=== PATIENT | male | born 1965 | race Caucasian/White ===

== ENCOUNTER 2023-05-12 07:20 | Inpatient (IN) ==
[2023-05-08 15:42] LABS: Basophils # (Auto) 0.04 K/mcL (0.00-0.30); Basophils % (Auto) 0.6 % (0.0-2.0); Eosinophils # (Auto) 0.32 K/mcL (0.00-0.70); Eosinophils % (Auto) 4.6 % (0.0-7.0); Hematocrit 41.6 % (40.1-51.0); Lymphocytes # (Auto) 2.09 K/mcL (1.50-4.80); Lymphocytes % (Auto) 30.3 % (15.5-49.0); Mean Cell Volume 90.4 fL (80.0-100.0); Mean Corpuscular HGB Conc 33.7 g/dL (31.0-36.0); Mean Platelet Volume 8.4 fL (8.8-12.5); Monocytes # (Auto) 0.49 K/mcL (0.10-0.90); Monocytes % (Auto) 7.1 % (1.0-12.0); Neutrophils % (Auto) 56.1 % (38.0-78.0); Platelet Count 300 K/mcL (140-440); Red Cell Distribution Width 12.1 % (11.5-14.5); WBC 6.9 K/mcL (4.5-11.0)
[2023-05-08 16:14] LABS: Appearance,Urine CLEAR (Clear); Bilirubin,Urine Negative (Negative); Color,Urine COLORLESS; Culture Indicated,Urine No; Glucose,Urine (UA) Negative (Negative); Ketones,Urine Negative (Negative); Leukocyte Esterase,Urine Negative /uL (Negative); Nitrate,Urine Negative (Negative); Protein,Urine Negative (Negative); Specific Gravity,Urine 1.003 (1.000-1.035); Urine Blood Negative (Negative); Urobilinogen,Urine Negative
[2023-05-08 16:35] LABS: Blood Urea Nitrogen 8 mg/dL (6-20); Calcium 9.6 mg/dL (8.6-10.4); Carbon Dioxide 21 mmol/L (22-30); Chloride 99 mmol/L (96-108); Glomerular Filtration Rate 104; Glucose 122 mg/dL (70-105)
--- NOTE | 2023-05-09 07:06 | EKG ---
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 Measurements Intervals [place] Rate: 102 P: 41 OR: 201 QRS: 3 QRSD: 103 T: 2 QT: 353 QTc: 460 Interpretive Statements Sinus tachycardia FIRST DEGREE AV BLOCK Electronically Signed On 05-09-2023 7:06:14 PDT by Artem Beasley M.D. /[email or web address]/[email or web address]/[id number]
[~2023-05-12 07:20] MED LIST: ACETAMINOPHEN 500 MG TABLET PO SCH; CELECOXIB 200 MG CAPSULE PO SCH; PREGABALIN 75 MG CAPSULE PO SCH; ceFAZolin 2 GM in DEXTROSE 5% IN WATER 50 ML IV SCH; oxyCODONE 10 MG TAB.ER.12H PO SCH
[2023-05-12] MEDS ORDERED: fentaNYL 100 MCG/2 ML VIAL IV ONE (11:25)
[2023-05-12] MEDS ORDERED: BUPIVACAINE W/EPI 0.5% 50 ML VIAL IJ ONE (11:25)
[2023-05-12] MEDS ORDERED: TRANEXAMIC ACID 1,000 MG/10 ML VIAL ONE (11:25)
[2023-05-12] MEDS ORDERED: MIDAZOLAM 2 MG/2 ML VIAL ONE (11:25)
[2023-05-12] MEDS ORDERED: DEXAMETHASONE 10 MG/ML VIAL ONE (11:25)
[2023-05-12] MEDS ORDERED: PROPOFOL 200 MG/20 ML VIAL IV ONE (11:25)
[2023-05-12] MEDS ORDERED: LIDOCAINE HCL/PF 100 MG/5 ML SYRINGE IV ONE (11:25)
[2023-05-12] MEDS ORDERED: IPRATROPIUM/ALBUTEROL 3 ML AMPUL.NEB NEB PRN (11:54)
[2023-05-12] MEDS ORDERED: HYDROmorphone 0.5 MG/0.5 ML SYRINGE IV PRN (11:54)
[2023-05-12] MEDS ORDERED: morphine 2 MG/ML VIAL IV PRN (11:54)
[2023-05-12] MEDS ORDERED: ONDANSETRON 4 MG/2 ML VIAL IV PRN ×2 (11:54→12:58)
[2023-05-12] MEDS ORDERED: MEPERIDINE 25 MG/ML VIAL IV PRN (11:54)
[2023-05-12] MEDS ORDERED: LIDOCAINE W/EPI 1% 20 ML VIAL IJ ONE (12:08)
--- NOTE | 2023-05-12 12:48 | Discharge Plan ---
DC Instructions-General Patient Instructions Additional Dressing Instructions: keep compression dressing intact x 3 weeks. If soiled or wet change. (Jennifer out 3 weeks) Discharge Plan Patient/Caregiver Discharge Instructions Activity: non-weight bearing Diet: Regular Diet Prescriptions: New hydrocodone-acetaminophen 10-325 mg tablet 1 - 2 tab PO Q4H PRN (Reason: pain) Qty: 75 0RF aspirin [Ecotrin Low Strength] 81 mg tablet,delayed release (DR/EC) 81 mg PO BID Qty: 60 0RF docusate sodium 100 mg capsule 100 mg PO BID Qty: 60 0RF No Action multivitamin Tablet 1 tab PO QDAY ascorbic acid (vitamin C) [Vitamin C] 1,000 mg Tablet 1,000 mg PO QDAY linezolid 600 mg Tablet 600 mg PO BID metformin 1,000 mg Tablet 1,000 mg PO BID cephalexin 500 mg Tablet 500 mg PO QID magnesium 250 mg Tablet 500 mg PO QDAY Follow Up Plan Follow up with: Nehemiah Dickson MD [Physician] - 05/29/23 1:10 pm Joseph Linda PAMieshaC [Physician Motion Graphics Designer] - Patient Disposition: Home, Self-Care Prognosis: Good Rehab Potential: Good I certify that the patient requires SNF services: No Overall status at discharge: patient is progressing back to baseline Discharge Orders: Discharge Order (Routine); Ordered 05/13/23 Ordered By: Joseph Linda Discharge Comment: No Ortho F/u until 3 weeks for staple removal
--- NOTE | 2023-05-12 12:57 | Brief Operative Note ---
Brief Operative Note Date of procedure: 05/12/23 Pre-op diagnosis: Left foot gangrene Post-op diagnosis: same Procedure: Left below knee amputation Grafts/Implants: Yes Anesthesia: GETA Findings: left foot gangrene and failure of wound care Complications: none Surgeon: Nehemiah Dickson [employer] Professor: Joseph Linda Estimated blood loss (cc): 156 Tourniquet Time (Minutes): 20 Specimens Removed/Pathology: none sent Condition: stable Disposition: PACU
[2023-05-12] MEDS ORDERED: ACETAMINOPHEN 325 MG TABLET PO PRN (12:58)
[2023-05-12] MEDS ORDERED: TEMAZEPAM 15 MG CAPSULE PO PRN (12:58)
[2023-05-12] MEDS ORDERED: POLYETHYLENE GLYCOL 3350 17 GM PACKET PO PRN (12:58)
[2023-05-12] MEDS ORDERED: MAGNESIUM HYDROXIDE 30 ML ORAL.SUSP PO PRN (12:58)
[2023-05-12] MEDS ORDERED: FLEETS ADULT ENEMA PR PRN (12:58)
[2023-05-12] MEDS ORDERED: BISACODYL 10 MG SUPP.RECT PR PRN (12:58)
[2023-05-12] MEDS ORDERED: TRANEXAMIC ACID 1,000 MG/10 ML VIAL IV ONE (12:58)
[2023-05-12] MEDS ORDERED: BENZOCAINE/MENTHOL 1 LOZENGE PO PRN (12:58)
--- NOTE | 2023-05-12 13:22 | Operative Note ---
DATE OF OPERATION: 05/12/2023 DATE OF PROCEDURE: 05/12/2023 PREOPERATIVE DIAGNOSIS: Left foot gangrene. POSTOPERATIVE DIAGNOSES: Left foot gangrene. PROCEDURE: Left below-knee amputation. SURGEON: Nehemiah Dickson M.D. COMPRESSED GASES TESTER: Joseph Linda PA-C. This providers expertise and technical skill were required throughout the case. The PA assisted with preoperative coordination, intraoperative retraction, wound closure, and dressing and splint application, as well as postoperative documentation and care coordination. ANESTHESIA: General LMA anesthesia. ESTIMATED BLOOD LOSS: 156 mL. No blood products given. SPECIMENS SENT: A below-knee amputation foot was sent for pathology. TOURNIQUET TIME: Approximately 20 minutes. DESCRIPTION OF PROCEDURE: The patient was brought to the operating room, put to sleep with general LMA anesthesia. Once asleep, the patient had the left leg sterilely prepped and draped in the usual sterile fashion. Once the timeout had been performed, confirming the operative site, we exsanguinated the leg and inflated the tourniquet to 250 pounds of pressure. We then marked 12 cm below the articular surface, measured the circumference and then one-half of the circumference was our posterior flap as well as a very long anterior flap he had very good vascular flow to the front skin, and he had quite a large calf. With this adequate skin coverage, we incised through skin, identified the tibia, which was cut at 12 cm. The cut was chamfered and the fibula cut 2 cm more proximal than the tibia. Nerves were identified. This included the peroneal nerve as well as posterior tibial nerve and the anterior tibial nerve was also identified, the vessel groups the anterior bundle and the posterior bundle of the tibial arteries and veins Correspondingly, we identified these and with a 2-0 Vicryl we tied these x2. We removed most of the soleus muscle and kept some of the anterior lateral compartment for skin healing reasons and to cover the fibula. Once we deflated the tourniquet, we controlled bleeding with the Bovie and further stitches as required. Once done and we had injected the posterior tibial nerve with lidocaine with epinephrine, we then tied the gastroc muscle tendinous portion of the muscle to the distal portion of the tibia through drill holes. We then used FiberWire to connect the fascial layer as well as Stratafix. With Stratafix, we also made a deeper layer to the skin closure and a subcuticular closure. Once this was well aligned and we had adequate skin we then placed mateo throughout. Any place that was interrupted we used Prolene #1 to close these. We then placed a sterile bandage and compressive bandage was then placed. Blood loss was about 150 mL. COMPLICATIONS: None. DISPOSITION: PACU. RBH:kh Job ID: [id number] Doc ID: [id number] Nehemiah Dickson MD
[2023-05-12] MEDS: fentaNYL 100 MCG/2 ML VIAL IV PRN ×2 (13:44→13:51)
--- NOTE | 2023-05-12 13:46 | XRay Report ---
HISTORY: Postop below-knee left leg amputation FINDINGS: There are normal postoperative changes following amputation of the lower leg. The proximal portions of the tibia and fibula remain intact. There is gas in the soft tissues at the stump and there are overlying surgical mateo. There is severe joint space narrowing in the lateral joint compartment and mild arthritis of the patellofemoral joint. IMPRESSION: Normal postoperative changes following below-knee amputation Interpreted and Authenticated by: Ramsey Besaley 05/12/23
[2023-05-12] MEDS ORDERED: 0.9 % SODIUM CHLORIDE 10 ML SYRINGE IV SCH (14:00)
[2023-05-12] MEDS: 0.45 % SODIUM CHLORIDE 1,000 ML IV SCH ×2 (14:26→23:17)
[2023-05-12] MEDS: 0.9 % SODIUM CHLORIDE 10 ML SYRINGE IV SCH ×2 (16:21→20:31)
[2023-05-12] MEDS: HYDROcodone/APAP 10/325MG TABLET PO PRN ×2 (16:56→21:26)
[2023-05-12] MEDS: ceFAZolin 1 GM VIAL IV SCH (19:39)
[2023-05-12] MEDS: HYDROmorphone 1 MG/ML SYRINGE IV PRN ×2 (19:39→23:40)
[2023-05-12] MEDS: metFORMIN 500 MG TABLET PO SCH (20:30)
[2023-05-12] MEDS: ASPIRIN 81 MG TAB.CHEW PO SCH (20:30)
[2023-05-12] MEDS: SENNOSIDES 1 TABLET PO SCH (20:30)
[2023-05-12] MEDS: DOCUSATE SODIUM 100 MG CAPSULE PO SCH (20:30)
[2023-05-13] MEDS: ceFAZolin 1 GM VIAL IV SCH (03:06)
[2023-05-13] MEDS: 0.9 % SODIUM CHLORIDE 10 ML SYRINGE IV SCH ×3 (04:53→21:15)
[2023-05-13] MEDS: HYDROmorphone 1 MG/ML SYRINGE IV PRN ×5 (04:53→23:44)
--- NOTE | 2023-05-13 06:45 | Orthopedic Progress Note ---
SUBJECTIVE Subjective Patient information: Note initiated : 05/13/23 at 6:44 am Service Date, if different from initiated Date: [] Patient: Shane De La O 57 y/o M admitted on 05/12/23 for Left Amputation Through Tibia & Fibula. Chief Complaint: [Pt is stable this morning on post operative day without any significant concerns or complaints. Patients vital signs have remained stable. Patients dressing is dry and is grossly intact from a neurovascular and motor standpoint. Patients 10 point ROS is otherwise negative. ] Constitutional Vitals: Vital Signs Temp Pulse Resp BP Pulse Ox O2 Del Method O2 Flow Rate 97.9 F 86 16 121/82 95 Room Air 2 05/13/23 03:05 05/13/23 03:05 05/13/23 03:05 05/13/23 03:05 05/13/23 04:59 05/13/23 04:59 05/12/23 14:08 Period Temp Pulse Resp BP Sys/Simpson Pulse Ox O2 Del Method O2 Flow Rate Last 24 Hr 97.0 F-98.6 F 74-110 8-27 85-132/53-84 85-98 Oxymask-Room Air 0-6 Intake and Output 05/12/23 05/13/23 05/13/23 19:59 03:59 11:59 Intake Total 420 1700 Output Total 1900 1200 Balance -1480 500 Weight 242 lb 9.6 oz Intake & Output: Intake & Output 05/12/23 05/13/23 05/13/23 19:59 03:59 11:59 Intake Total 420 1700 Output Total 1900 1200 Balance -1480 500 Weight 242 lb 9.6 oz Intake: IV 1000 Sodium Chloride 0.45% 1,000 ml 1000 @ 100 mls/hr IV .Q10H [facility] Rx#: [id number] Oral 420 700 Output: Void Amount 1900 1200 Other: Urine Appearance Clear Clear Urine Color Yellow Yellow Stool Size Moderate Stool Consistency Soft Formed # Bowel Movements 1 Extremities Exam Extremities exam: Present normal inspection OBJ DATA Labs 05/13/23 05:09 05/08/23 13:40 Labs: Abnormal Lab Results 05/13/23 05:09 Hct 37.1 L Meds: Medications Acetaminophen (Acetaminophen 325 Mg Tablet) 650 mg PO Q6HP PRN; Protocol PRN Reason: Per Pain Protocol/Fever > 101 Hydrocodone Bitart/Acetaminophen (Hydrocodone/Apap 325mg Tablet) 1 - 2 tab PO Q4HP PRN; Protocol PRN Reason: Per Pain Protocol Last Admin: 05/12/23 21:26 Dose: 2 tab Aspirin (Aspirin 81 Mg Tab.Chew) 81 mg PO BID [facility] Last Admin: 05/12/23 20:30 Dose: 81 mg Bisacodyl (Bisacodyl 10 Mg Supp.Rect) 10 mg OK Q2-3DAYS PRN PRN Reason: Constipation Docusate Sodium (Docusate Sodium 100 Mg Capsule) 100 mg PO BID [facility] Last Admin: 05/12/23 20:30 Dose: 100 mg Hydromorphone HCl (Hydromorphone 1 Mg/Ml Syringe) 0.5 - 2 mg IV Q2HP PRN; Protocol PRN Reason: Per Pain Protocol Last Admin: 05/13/23 04:53 Dose: 2 mg Sodium Chloride (Sodium Chloride 0.45%) 1,000 mls @ 100 mls/hr IV .Q10H [facility] Last Admin: 05/12/23 23:17 Dose: Not Given Iron Carb/Multivit/[place]/Folic Acid (Multivit,Ther Iron,Ca,Fa & Min 1 Tablet) 1 tab PO QDAY [facility] Magnesium Hydroxide (Magnesium Hydroxide 30 Ml Oral.Susp) 30 ml PO BIDP PRN PRN Reason: Constipation Metformin HCl (Metformin 500 Mg Tablet) 1,000 mg PO BID [facility] Last Admin: 05/12/23 20:30 Dose: 1,000 mg Ondansetron HCl (Ondansetron 4 Mg/2 Ml Vial) 4 mg IV Q4HP PRN PRN Reason: Nausea And Vomiting Polyethylene Glycol (Polyethylene Glycol 3350 17 Gm Packet) 17 gm PO DAILYP PRN PRN Reason: Constipation Senna (Sennosides 1 Tablet) 2 tab PO HS [facility] Last Admin: 05/12/23 20:30 Dose: 2 tab Sodium Biphosphate/Sodium Phosphate (Fleets Adult Enema) 1 dose OK Q3-4DAYS PRN PRN Reason: Constipation Sodium Chloride (0.9 % Sodium Chloride 10 Ml Syringe) 10 ml IV Q8 [facility] Last Admin: 05/13/23 04:53 Dose: 10 ml Temazepam (Temazepam 15 Mg Capsule) 15 mg PO HSP PRN PRN Reason: Insomnia Throat Lozenges (Benzocaine/Menthol 1 Lozenge) 1 lozenge PO PRN PRN PRN Reason: Sore Throat A/P Narrative A/P Narrative: The patient has been educated regarding dressing care, , restrictions, and follow up appointments. The patient has had all necessary DME prescribed. The patient has remained relatively stable during their hospital course. Time Spent With Patient Time: Total time spent is greater than 50% in coordination of care (as documented) at patient's floor/unit and/or counseling patient: Initial: Total time with patient: Less than 40 minutes Subsequent: Total time with patient: Less than 25 minutes Critical Care Time: No
[2023-05-13] MEDS: metFORMIN 500 MG TABLET PO SCH ×2 (09:04→21:15)
[2023-05-13] MEDS: HYDROcodone/APAP 10/325MG TABLET PO PRN ×2 (09:04→13:41)
[2023-05-13] MEDS: MULTIVIT,THER IRON,CA,FA & MIN 1 TABLET PO SCH (09:06)
[2023-05-13] MEDS: DOCUSATE SODIUM 100 MG CAPSULE PO SCH ×2 (09:06→21:15)
[2023-05-13] MEDS: ASPIRIN 81 MG TAB.CHEW PO SCH ×2 (09:06→21:15)
[2023-05-13] MEDS: 0.45 % SODIUM CHLORIDE 1,000 ML IV SCH (10:43)
[2023-05-13] MEDS: diphenhydrAMINE 25 MG CAPSULE PO PRN ×2 (15:36→21:15)
[2023-05-13] MEDS: oxyCODONE IR 5 MG TABLET PO PRN ×2 (16:50→21:15)
[2023-05-13] MEDS: SENNOSIDES 1 TABLET PO SCH (21:15)
[2023-05-14] MEDS: oxyCODONE IR 5 MG TABLET PO PRN ×2 (03:19→08:23)
[2023-05-14] MEDS: HYDROmorphone 1 MG/ML SYRINGE IV PRN ×2 (05:37→12:03)
[2023-05-14] MEDS: 0.9 % SODIUM CHLORIDE 10 ML SYRINGE IV SCH (05:38)
[2023-05-14] MEDS: diphenhydrAMINE 25 MG CAPSULE PO PRN ×2 (05:38→12:02)
[2023-05-14] MEDS: metFORMIN 500 MG TABLET PO SCH (08:22)
[2023-05-14] MEDS: DOCUSATE SODIUM 100 MG CAPSULE PO SCH (08:22)
[2023-05-14] MEDS: MULTIVIT,THER IRON,CA,FA & MIN 1 TABLET PO SCH (08:23)
[2023-05-14] MEDS: ASPIRIN 81 MG TAB.CHEW PO SCH (08:23)
== END 2023-05-14 12:20 | disposition home or self-care (01) | DRG 240 ==
LOC: MEDSUR 07:20
PROVIDERS: ADMIT Orthopaedic Surgery; ATTEND Orthopaedic Surgery

== ENCOUNTER 2025-09-20 12:21 | Inpatient (IN) ==
[2025-09-20 13:49] LABS: Basophils # (Auto) 0.01 K/mcL (0.00-0.30); Basophils % (Auto) 0.2 % (0.0-2.0); Eosinophils # (Auto) 0.16 K/mcL (0.00-0.70); Eosinophils % (Auto) 2.4 % (0.0-7.0); Hematocrit 43.6 % (40.1-51.0); Hemoglobin 14.6 g/dL (13.7-17.5); Lymphocytes # (Auto) 1.48 K/mcL (1.50-4.80); Lymphocytes % (Auto) 22.3 % (15.5-49.0); Mean Corpuscular HGB Conc 33.5 g/dL (31.0-36.0); Monocytes # (Auto) 0.76 K/mcL (0.10-0.90); Monocytes % (Auto) 11.4 % (1.0-12.0); Neutrophils % (Auto) 63.1 % (38.0-78.0); Platelet Count 278 K/mcL (140-440); RBC 4.68 M/mcL (4.63-6.08); WBC 6.7 K/mcL (4.5-11.0)
[2025-09-20 13:54] LABS: ALT/SGPT 65 U/L (<40); AST/SGOT 58 U/L (<40); Albumin 3.9 gm/dL (3.2-5.2); Albumin/Globulin Ratio 0.9 (1.0-2.3); Alkaline Phosphatase 90 U/L (39-117); Anion Gap 13.0 (8.0-16.0); Bilirubin,Total 0.3 mg/dL (0.1-1.0); Blood Urea Nitrogen 8 mg/dL (6-20); Calcium 9.7 mg/dL (8.6-10.4); Carbon Dioxide 26 mmol/L (22-30); Chloride 98 mmol/L (96-108); Globulin 4.2 gm/dL (2.2-3.7); Glucose 206 mg/dL (70-105); Potassium 4.0 mmol/L (3.3-5.1); Sodium 137 mmol/L (133-145)
[2025-09-20 13:55] LABS: C-Reactive Protein 10.10 mg/dL (0.03-0.80)
[2025-09-20] MEDS: PIPERACILLIN SODIUM/TAZOBACTAM 3.375 GM in DEXTROSE 5% IN WATER 50 ML IV ONE (14:17)
[2025-09-20] MEDS: VANCOMYCIN 2,000 MG in 0.9 % SODIUM CHLORIDE 500 ML IV ONE (14:52)
[2025-09-20 16:28] LABS: Estimated Average Glucose(eAG) 128.0 mg/dL; Hemoglobin A1C 6.1 % Hgb (4.0-6.0)
[2025-09-20] MEDS ORDERED: DEXTROSE 31 GM ORAL.SUSP PO PRN (17:46)
[2025-09-20] MEDS ORDERED: VANCOMYCIN PER PHARMACY IV SCH (17:46)
[2025-09-20] MEDS ORDERED: DEXTROSE 50% 50 ML VIAL IV PRN (17:46)
[2025-09-20] MEDS ORDERED: IBUPROFEN 600 MG TABLET PO PRN (17:46)
[2025-09-20] MEDS ORDERED: ONDANSETRON 4 MG/2 ML VIAL IV PRN (17:46)
[2025-09-20] MEDS ORDERED: ACETAMINOPHEN 325 MG TABLET PO PRN (17:46)
[2025-09-20] MEDS ORDERED: SENNOSIDES 1 TABLET PO PRN (17:46)
[2025-09-20] MEDS ORDERED: MAG HYDROX/AL HYDROX/SIMETH 30 ML ORAL.SUSP PO PRN (17:46)
[2025-09-20] MEDS ORDERED: ACETAMINOPHEN 1,000 MG/100 ML BAG IV PRN (17:46)
[2025-09-20] MEDS: INSULIN LISPRO 1 UNIT/0.01 ML UNIT SQ SCH (18:09)
[2025-09-20] MEDS: CEFEPIME 2 GM VIAL IV SCH (18:15)
[2025-09-20] MEDS: metroNIDAZOLE 500 MG/100 ML BAG IV SCH (18:15)
[2025-09-20] MEDS: HEPARIN 5,000 UNIT/ML VIAL SQ SCH (21:09)
[2025-09-20] MEDS: 0.9 % SODIUM CHLORIDE 10 ML SYRINGE IV SCH (21:09)
[2025-09-21] MEDS: VANCOMYCIN 1,750 MG in 0.9 % SODIUM CHLORIDE 500 ML IV SCH (01:57)
[2025-09-21] MEDS: LACTATED RINGERS 1,000 ML IV SCH (01:57)
[2025-09-21 06:24] LABS: Basophils # (Auto) 0.01 K/mcL (0.00-0.30); Basophils % (Auto) 0.2 % (0.0-2.0); Eosinophils # (Auto) 0.16 K/mcL (0.00-0.70); Eosinophils % (Auto) 3.4 % (0.0-7.0); Hematocrit 41.6 % (40.1-51.0); Hemoglobin 13.9 g/dL (13.7-17.5); Lymphocytes # (Auto) 1.28 K/mcL (1.50-4.80); Lymphocytes % (Auto) 27.1 % (15.5-49.0); Mean Corpuscular HGB Conc 33.4 g/dL (31.0-36.0); Monocytes # (Auto) 0.43 K/mcL (0.10-0.90); Monocytes % (Auto) 9.1 % (1.0-12.0); Neutrophils % (Auto) 59.6 % (38.0-78.0); Platelet Count 256 K/mcL (140-440); RBC 4.44 M/mcL (4.63-6.08); WBC 4.7 K/mcL (4.5-11.0)
[2025-09-21 06:48] LABS: ALT/SGPT 64 U/L (<40); AST/SGOT 60 U/L (<40); Albumin 3.6 gm/dL (3.2-5.2); Albumin/Globulin Ratio 0.9 (1.0-2.3); Alkaline Phosphatase 74 U/L (39-117); Anion Gap 10.0 (8.0-16.0); Bilirubin,Direct < 0.2 mg/dL (0-0.3); Bilirubin,Total 0.3 mg/dL (0.1-1.0); Blood Urea Nitrogen 8 mg/dL (6-20); Calcium 8.9 mg/dL (8.6-10.4); Carbon Dioxide 26 mmol/L (22-30); Chloride 103 mmol/L (96-108); Globulin 3.8 gm/dL (2.2-3.7); Glucose 153 mg/dL (70-105); Phosphorous 3.9 mg/dL (2.5-4.5); Potassium 4.0 mmol/L (3.3-5.1); Sodium 139 mmol/L (133-145); Triglycerides 138 mg/dL (<150); Uric Acid 5.4 mg/dL (2.5-8.0)
[2025-09-21] MEDS: ENOXAPARIN 40 MG/0.4 ML SYRINGE SQ SCH (20:22)
[2025-09-21 21:48] LABS: Bilirubin,Urine NEGATIVE (Negative); Color,Urine LT. YELLOW; Glucose,Urine (UA) NEGATIVE (Negative); Ketones,Urine NEGATIVE (Negative); Leukocyte Esterase,Urine NEGATIVE /uL (Negative); PH,Urine 6.5 (5.0-9.0); Protein,Urine NEGATIVE (Negative); Specific Gravity,Urine 1.010 (1.000-1.035); Urobilinogen,Urine 0.2 mg/dL
[2025-09-22 06:37] LABS: Basophils # (Auto) 0.01 K/mcL (0.00-0.30); Basophils % (Auto) 0.2 % (0.0-2.0); Eosinophils # (Auto) 0.15 K/mcL (0.00-0.70); Eosinophils % (Auto) 3.6 % (0.0-7.0); Hematocrit 38.7 % (40.1-51.0); Hemoglobin 12.8 g/dL (13.7-17.5); Lymphocytes # (Auto) 1.15 K/mcL (1.50-4.80); Lymphocytes % (Auto) 27.4 % (15.5-49.0); Mean Corpuscular HGB Conc 33.1 g/dL (31.0-36.0); Monocytes # (Auto) 0.40 K/mcL (0.10-0.90); Monocytes % (Auto) 9.5 % (1.0-12.0); Neutrophils % (Auto) 58.3 % (38.0-78.0); Platelet Count 242 K/mcL (140-440); RBC 4.09 M/mcL (4.63-6.08); WBC 4.2 K/mcL (4.5-11.0)
[2025-09-22 07:09] LABS: ALT/SGPT 72 U/L (<40); AST/SGOT 69 U/L (<40); Albumin 3.4 gm/dL (3.2-5.2); Albumin/Globulin Ratio 1.0 (1.0-2.3); Alkaline Phosphatase 66 U/L (39-117); Anion Gap 10.0 (8.0-16.0); Bilirubin,Direct < 0.2 mg/dL (0-0.3); Bilirubin,Total 0.3 mg/dL (0.1-1.0); Blood Urea Nitrogen 9 mg/dL (6-20); Calcium 8.8 mg/dL (8.6-10.4); Carbon Dioxide 25 mmol/L (22-30); Chloride 106 mmol/L (96-108); Globulin 3.5 gm/dL (2.2-3.7); Glucose 141 mg/dL (70-105); Phosphorous 3.5 mg/dL (2.5-4.5); Potassium 3.8 mmol/L (3.3-5.1); Sodium 141 mmol/L (133-145); Triglycerides 134 mg/dL (<150); Uric Acid 6.2 mg/dL (2.5-8.0)
[2025-09-22] MEDS ORDERED: ONDANSETRON 4 MG/2 ML VIAL ONE (10:33)
[2025-09-22] MEDS ORDERED: METOCLOPRAMIDE 10 MG/2 ML VIAL ONE (10:33)
[2025-09-22] MEDS ORDERED: PROPOFOL 200 MG/20 ML VIAL IV ONE (10:33)
[2025-09-22] MEDS ORDERED: MIDAZOLAM 2 MG/2 ML VIAL ONE (10:33)
[2025-09-22] MEDS ORDERED: KETOROLAC 30 MG/ML VIAL ONE (10:33)
[2025-09-22] MEDS ORDERED: GLYCOPYRROLATE 0.2 MG/ML VIAL IV ONE (10:33)
[2025-09-22] MEDS ORDERED: LIDOCAINE 2% PF 5 ML VIAL ONE (10:33)
[2025-09-22] MEDS ORDERED: DEXAMETHASONE 10 MG/ML VIAL ONE (10:33)
[2025-09-22] MEDS ORDERED: FAMOTIDINE/PF 20 MG/2 ML VIAL IV ONE (10:33)
[2025-09-22] MEDS: 0.9 % SODIUM CHLORIDE 500 ML IV ONE (12:10)
[2025-09-22] MEDS: BUPIVACAINE 0.5% 50 ML VIAL IJ ONE (12:17)
[2025-09-22] MEDS ORDERED: HYDROmorphone 0.5 MG/0.5 ML SYRINGE ONE (12:41)
[2025-09-22] MEDS ORDERED: ePHEDrine 50 MG/5 ML SYRINGE (ANEST) IV ONE (12:51)
[2025-09-22] MEDS ORDERED: IPRATROPIUM/ALBUTEROL 3 ML AMPUL.NEB NEB PRN (13:17)
[2025-09-22] MEDS ORDERED: HYDROmorphone 0.5 MG/0.5 ML SYRINGE IV PRN (13:17)
[2025-09-22] MEDS ORDERED: fentaNYL 100 MCG/2 ML VIAL IV PRN (13:17)
[2025-09-22] MEDS: ACETAMINOPHEN 1,000 MG/100 ML BAG IV ONE (13:35)
[2025-09-22] MEDS: 0.9 % SODIUM CHLORIDE 10 ML SYRINGE IV SCH (13:55)
[2025-09-22] MEDS: LACTATED RINGERS 1,000 ML IV SCH (14:29)
[2025-09-23 06:21] LABS: Basophils # (Auto) 0 K/mcL (0.00-0.30); Basophils % (Auto) 0 % (0.0-2.0); Eosinophils # (Auto) 0.03 K/mcL (0.00-0.70); Eosinophils % (Auto) 0.4 % (0.0-7.0); Hematocrit 38.2 % (40.1-51.0); Hemoglobin 12.8 g/dL (13.7-17.5); Lymphocytes # (Auto) 1.44 K/mcL (1.50-4.80); Lymphocytes % (Auto) 17.5 % (15.5-49.0); Mean Corpuscular HGB Conc 33.5 g/dL (31.0-36.0); Monocytes # (Auto) 0.56 K/mcL (0.10-0.90); Monocytes % (Auto) 6.8 % (1.0-12.0); Neutrophils % (Auto) 74.6 % (38.0-78.0); Platelet Count 286 K/mcL (140-440); RBC 4.06 M/mcL (4.63-6.08); WBC 8.2 K/mcL (4.5-11.0)
[2025-09-23 06:35] LABS: ALT/SGPT 77 U/L (<40); AST/SGOT 61 U/L (<40); Albumin 3.4 gm/dL (3.2-5.2); Albumin/Globulin Ratio 1.0 (1.0-2.3); Alkaline Phosphatase 64 U/L (39-117); Anion Gap 10.0 (8.0-16.0); Bilirubin,Direct < 0.2 mg/dL (0-0.3); Bilirubin,Total 0.2 mg/dL (0.1-1.0); Blood Urea Nitrogen 10 mg/dL (6-20); Calcium 8.5 mg/dL (8.6-10.4); Carbon Dioxide 23 mmol/L (22-30); Chloride 104 mmol/L (96-108); Globulin 3.5 gm/dL (2.2-3.7); Glucose 135 mg/dL (70-105); Phosphorous 3.3 mg/dL (2.5-4.5); Potassium 3.6 mmol/L (3.3-5.1); Sodium 137 mmol/L (133-145); Triglycerides 105 mg/dL (<150); Uric Acid 5.8 mg/dL (2.5-8.0)
[2025-09-23] MEDS: AMOXICILLIN/POTASSIUM CLAV 875 MG TABLET PO SCH (17:13)
== END 2025-09-23 19:00 | disposition home or self-care (01) | DRG 475 ==
LOC: ED 12:21 → MEDSUR 17:23
PROVIDERS: ADMIT Student in an Organized Health Care Education/Training Program; ATTEND Internal Medicine

== ENCOUNTER 2025-10-14 07:54 | Inpatient (IN) ==
[2025-10-14] MEDS ORDERED: VANCOMYCIN 1,000 MG in 0.9 % SODIUM CHLORIDE 250 ML IV ONE (08:01)
[2025-10-14] MEDS: LACTATED RINGERS 1,000 ML IV ONE ×2 (08:10→10:19)
[2025-10-14] MEDS: CEFEPIME 2 GM VIAL IV ONE (08:32)
[2025-10-14 08:41] LABS: Basophils # (Auto) 0 K/mcL (0.00-0.30); Basophils % (Auto) 0 % (0.0-2.0); Eosinophils # (Auto) 0.13 K/mcL (0.00-0.70); Eosinophils % (Auto) 1.6 % (0.0-7.0); Hematocrit 44.7 % (40.1-51.0); Hemoglobin 15.0 g/dL (13.7-17.5); Lymphocytes # (Auto) 1.88 K/mcL (1.50-4.80); Lymphocytes % (Auto) 23.0 % (15.5-49.0); Mean Corpuscular HGB Conc 33.6 g/dL (31.0-36.0); Monocytes # (Auto) 0.61 K/mcL (0.10-0.90); Monocytes % (Auto) 7.5 % (1.0-12.0); Neutrophils % (Auto) 67.7 % (38.0-78.0); Platelet Count 167 K/mcL (140-440); RBC 4.82 M/mcL (4.63-6.08); WBC 8.2 K/mcL (4.5-11.0)
[2025-10-14 09:00] LABS: Anion Gap 17.0 (8.0-16.0); Blood Urea Nitrogen 6 mg/dL (6-20); Calcium 9.6 mg/dL (8.6-10.4); Carbon Dioxide 22 mmol/L (22-30); Chloride 97 mmol/L (96-108); Glucose 117 mg/dL (70-105); Potassium 4.3 mmol/L (3.3-5.1); Sodium 136 mmol/L (133-145)
[2025-10-14] MEDS: VANCOMYCIN 1,500 MG in 0.9 % SODIUM CHLORIDE 500 ML IV ONE (09:04)
[2025-10-14 12:38] LABS: INR 0.9 (0.9-1.1); Prothrombin Time 13.3 sec (11.9-14.5)
[2025-10-14] MEDS: BUPIVACAINE 0.5% 50 ML VIAL IJ ONE (12:45)
[2025-10-14] MEDS: VANCOMYCIN 1 GM VIAL TOPICAL SCH (13:02)
[2025-10-14] MEDS ORDERED: IPRATROPIUM/ALBUTEROL 3 ML AMPUL.NEB NEB PRN (14:02)
[2025-10-14] MEDS ORDERED: VANCOMYCIN PER PHARMACY IV SCH (14:02)
[2025-10-14] MEDS ORDERED: ONDANSETRON 4 MG/2 ML VIAL IV PRN (14:02)
[2025-10-14] MEDS ORDERED: DEXTROSE 50% 50 ML VIAL IV PRN (14:02)
[2025-10-14] MEDS ORDERED: ACETAMINOPHEN 325 MG TABLET PO PRN (14:02)
[2025-10-14] MEDS: 0.9 % SODIUM CHLORIDE 1,000 ML IV SCH (15:00)
[2025-10-14] MEDS ORDERED: CEFEPIME 2 GM VIAL IV SCH (15:00)
[2025-10-14] MEDS: CEFEPIME 2 GM VIAL IV SCH (15:01)
[2025-10-14] MEDS: 0.9 % SODIUM CHLORIDE 10 ML SYRINGE IV SCH ×2 (15:01→15:02)
[2025-10-14] MEDS: INSULIN LISPRO 1 UNIT/0.01 ML UNIT SQ SCH (15:01)
[2025-10-14] MEDS: CEFEPIME 1 GM VIAL IV SCH (15:03)
[2025-10-14] MEDS: DOCUSATE SODIUM 100 MG CAPSULE PO SCH (20:48)
[2025-10-14] MEDS: SENNOSIDES 1 TABLET PO SCH (20:48)
[2025-10-14] MEDS: VANCOMYCIN 1,750 MG in 0.9 % SODIUM CHLORIDE 500 ML IV SCH (20:49)
[2025-10-15 06:28] LABS: Basophils # (Auto) 0.01 K/mcL (0.00-0.30); Basophils % (Auto) 0.2 % (0.0-2.0); Eosinophils # (Auto) 0.20 K/mcL (0.00-0.70); Eosinophils % (Auto) 4.7 % (0.0-7.0); Hematocrit 37.2 % (40.1-51.0); Hemoglobin 12.2 g/dL (13.7-17.5); Lymphocytes # (Auto) 1.06 K/mcL (1.50-4.80); Lymphocytes % (Auto) 25.0 % (15.5-49.0); Mean Corpuscular HGB Conc 32.8 g/dL (31.0-36.0); Monocytes # (Auto) 0.44 K/mcL (0.10-0.90); Monocytes % (Auto) 10.4 % (1.0-12.0); Neutrophils % (Auto) 59.5 % (38.0-78.0); Platelet Count 122 K/mcL (140-440); RBC 3.91 M/mcL (4.63-6.08); WBC 4.2 K/mcL (4.5-11.0)
[2025-10-15 06:49] LABS: Estimated Average Glucose(eAG) 128 mg/dL; Hemoglobin A1C 6.1 % Hgb (4.0-6.0)
[2025-10-15 07:13] LABS: ALT/SGPT 23 U/L (<40); AST/SGOT 22 U/L (<40); Albumin 3.6 gm/dL (3.2-5.2); Albumin/Globulin Ratio 1.2 (1.0-2.3); Alkaline Phosphatase 72 U/L (39-117); Anion Gap 8.0 (8.0-16.0); Bilirubin,Total 0.5 mg/dL (0.1-1.0); Blood Urea Nitrogen 9 mg/dL (6-20); Calcium 8.6 mg/dL (8.6-10.4); Carbon Dioxide 26 mmol/L (22-30); Chloride 104 mmol/L (96-108); Globulin 2.9 gm/dL (2.2-3.7); Glucose 141 mg/dL (70-105); Potassium 4.0 mmol/L (3.3-5.1); Sodium 138 mmol/L (133-145)
[2025-10-15] MEDS ORDERED: NON FORMULARY MEDICATION 1 DOSE MISCELL (Acetaminophen 325 mg capsule) PO PRN (10:38)
[2025-10-15] MEDS: ASPIRIN 81 MG TAB.CHEW PO SCH (11:08)
[2025-10-15] MEDS: CYANOCOBALAMIN (VITAMIN B-12) 500 MCG TABLET PO SCH (11:08)
[2025-10-15] MEDS: MULTIVIT,THER IRON,CA,FA & MIN 1 TABLET PO SCH (11:09)
[2025-10-15] MEDS: ASCORBIC ACID 500 MG TABLET PO SCH (11:09)
[2025-10-15] MEDS: MAGNESIUM OXIDE 400 MG TABLET PO SCH (11:09)
[2025-10-15] MEDS: VITAMIN D3 25 MCG TABLET PO SCH (11:09)
[2025-10-15] MEDS: INSULIN LISPRO 1 UNIT/0.01 ML UNIT SQ SCH (11:13)
[2025-10-15] MEDS ORDERED: VANCOMYCIN PER PHARMACY IV SCH (15:00)
[2025-10-16 06:40] LABS: Basophils # (Auto) 0.01 K/mcL (0.00-0.30); Basophils % (Auto) 0.2 % (0.0-2.0); Eosinophils # (Auto) 0.21 K/mcL (0.00-0.70); Eosinophils % (Auto) 4.6 % (0.0-7.0); Hematocrit 40.3 % (40.1-51.0); Hemoglobin 12.9 g/dL (13.7-17.5); Lymphocytes # (Auto) 1.59 K/mcL (1.50-4.80); Lymphocytes % (Auto) 34.5 % (15.5-49.0); Mean Corpuscular HGB Conc 32.0 g/dL (31.0-36.0); Monocytes # (Auto) 0.36 K/mcL (0.10-0.90); Monocytes % (Auto) 7.8 % (1.0-12.0); Neutrophils % (Auto) 52.9 % (38.0-78.0); Platelet Count 133 K/mcL (140-440); RBC 4.09 M/mcL (4.63-6.08); WBC 4.6 K/mcL (4.5-11.0)
[2025-10-16 06:54] LABS: ALT/SGPT 35 U/L (<40); AST/SGOT 39 U/L (<40); Albumin 3.8 gm/dL (3.2-5.2); Albumin/Globulin Ratio 1.1 (1.0-2.3); Alkaline Phosphatase 77 U/L (39-117); Anion Gap 12.0 (8.0-16.0); Bilirubin,Total 0.5 mg/dL (0.1-1.0); Blood Urea Nitrogen 8 mg/dL (6-20); Calcium 9.0 mg/dL (8.6-10.4); Carbon Dioxide 22 mmol/L (22-30); Chloride 103 mmol/L (96-108); Globulin 3.5 gm/dL (2.2-3.7); Glucose 138 mg/dL (70-105); Potassium 3.8 mmol/L (3.3-5.1); Sodium 137 mmol/L (133-145)
[2025-10-16] MEDS: POTASSIUM CHLORIDE 10 MEQ TABLET PO SCH (08:05)
[2025-10-17 06:20] LABS: Basophils # (Auto) 0.01 K/mcL (0.00-0.30); Basophils % (Auto) 0.2 % (0.0-2.0); Eosinophils # (Auto) 0.19 K/mcL (0.00-0.70); Eosinophils % (Auto) 4.0 % (0.0-7.0); Hematocrit 39.3 % (40.1-51.0); Hemoglobin 13.1 g/dL (13.7-17.5); Lymphocytes # (Auto) 1.39 K/mcL (1.50-4.80); Lymphocytes % (Auto) 28.9 % (15.5-49.0); Mean Corpuscular HGB Conc 33.3 g/dL (31.0-36.0); Monocytes # (Auto) 0.41 K/mcL (0.10-0.90); Monocytes % (Auto) 8.5 % (1.0-12.0); Neutrophils % (Auto) 58.2 % (38.0-78.0); Platelet Count 141 K/mcL (140-440); RBC 4.18 M/mcL (4.63-6.08); WBC 4.8 K/mcL (4.5-11.0)
[2025-10-17 06:56] LABS: ALT/SGPT 47 U/L (<40); AST/SGOT 48 U/L (<40); Albumin 3.9 gm/dL (3.2-5.2); Albumin/Globulin Ratio 1.1 (1.0-2.3); Alkaline Phosphatase 73 U/L (39-117); Anion Gap 11.0 (8.0-16.0); Bilirubin,Total 0.5 mg/dL (0.1-1.0); Blood Urea Nitrogen 10 mg/dL (6-20); Calcium 9.3 mg/dL (8.6-10.4); Carbon Dioxide 26 mmol/L (22-30); Chloride 102 mmol/L (96-108); Globulin 3.5 gm/dL (2.2-3.7); Glucose 141 mg/dL (70-105); Potassium 4.0 mmol/L (3.3-5.1); Sodium 139 mmol/L (133-145)
== END 2025-10-17 16:41 | disposition home or self-care (01) | DRG 464 ==
LOC: ED 07:54 → SUR 12:30 → MEDSUR 13:27
PROVIDERS: ADMIT Internal Medicine; ATTEND Student in an Organized Health Care Education/Training Program